=== PATIENT | female | born 1995 | race Caucasian/White ===

== ENCOUNTER 2016-07-22 10:21 | Inpatient (IN) | payer MEDICAID ==
[~2016-07-22] VITALS: Ht 157.5 cm; Wt 62.5 kg
[2016-07-22 10:37] VITALS: Ht 157.5 cm; Wt 62.5 kg
[2016-07-22] MEDS ORDERED: PRENAT PO (10:39)
[2016-07-22 11:11] LABS: ADD SCAN DIFF NO
[2016-07-22 11:22] LABS: ABNORMAL IP MESSAGE 1; BASOPHIL # 0.1 10^3/ul (0.0-0.1); BASOPHILS % 0.5 % (0.0-2.0); EOSINOPHILS # 2.1 10^3/ul (0.0-0.5); EOSINOPHILS % 21.9 % (0.0-7.0); HEMATOCRIT 35.5 % (37.0-47.0); HEMOGLOBIN 11.9 g/dl (12.0-16.0); LYMPHOCYTES # 1.9 10^3/ul (0.8-2.9); LYMPHOCYTES % 20.1 % (15.0-51.0); MEAN CORPUSCULAR HEMOGLOBIN 32.3 pg (29.0-33.0); MEAN CORPUSCULAR HGB CONC 33.5 g/dl (32.0-37.0); MEAN CORPUSCULAR VOLUME 96.5 fl (82.0-101.0); MEAN PLATELET VOLUME 10.4 fl (7.4-10.4); MONOCYTE # 0.5 10^3/ul (0.3-0.9); MONOCYTES % 5.4 % (0.0-11.0); NEUTROPHIL # 4.8 10^3/ul (1.6-7.5); NEUTROPHILS % 51.7 % (39.0-77.0); PLATELET COUNT 289 10^3/UL (140-415); RED BLOOD COUNT 3.68 10^6/ul (4.20-5.40); RED CELL DISTRIBUTION WIDTH 13.1 % (11.5-14.5); WHITE BLOOD COUNT 9.3 10^3/ul (4.8-10.8)
[2016-07-22 11:24] LABS: ADD UMIC NO; URINE BILIRUBIN (Dip) NEGATIVE (NEGATIVE); URINE BLOOD (Dip) NEGATIVE (NEGATIVE); URINE COLOR LT. YELLOW (YELLOW); URINE GLUCOSE (Dip) NEGATIVE (NEGATIVE); URINE KETONES (Dip) NEGATIVE (NEGATIVE); URINE LEUKOCYTE ESTERASE (Dip) NEGATIVE (NEGATIVE); URINE NITRITE (Dip) NEGATIVE (NEGATIVE); URINE TOTAL PROTEIN (Dip) NEGATIVE (NEGATIVE); URINE UROBILINOGEN (Dip) 0.2 E.U./dL (0.1-1.0)
[2016-07-22] MEDS ORDERED: LACTATED RINGER'S 500 ML IV* ONE (12:00)
[2016-07-22] MEDS ORDERED: LACTATED RINGER'S 1,000 ML IV SCH (12:00)
[2016-07-22] MEDS ORDERED: TERBUTALINE 1 MG/ML INJ SC ONE (12:00)
--- NOTE | 2016-07-22 12:35 | RADRPT ---
PROCEDURE: Limited OB ultrasound CLINICAL INDICATION: labor. TECHNIQUE: Sonographic evaluation to assess the cervical length was performed. Transabdominal nina ging of the gravid uterus was performed. COMPARISON: No prior exam is available for comparison. FINDINGS: There is a single live intrauterine with cardiac activity, with a heart rate o f 144 bpm. position is cephalic. The placenta is anterior. There are retroplacental areas o f decreased echogenicity along the superior and inferior aspect of the placenta. The cervix is clos ed with a length of 4.8 cm. IMPRESSION: 1. The cervix is closed with a length of 4.8 cm. 2. Small retroplacental areas of decreased echogenicity along the superior and inferior aspect of t he placenta. The exact location is difficult determine on provided images. These measure approxima te 3.5 cm in diameter, likely reflecting small areas of retroplacental hemorrhage. RPTAT: HH .Vivien Iniguez MD, MD Date Time Electronically viewed and signed by .Vivien Iniguez MD, on 07/22/2016 12:35 .G/
--- NOTE | 2016-07-22 12:43 | RADRPT ---
PROCEDURE: OB ultrasound for biophysical profile CLINICAL INDICATION: labor TECHNIQUE: Multiple sonographic images of the pelvis were obtained. Transabdominal views of the g ravid uterus are available for review. The images were reviewed on a PACS workstation. COMPARISON: None FINDINGS: breathing movement = 2/2 tone = 2/2 motion = 2/2 LENY = 2/2 MVP = 8.4 cm IMPRESSION: 1. Single live intrauterine gestation. 2. Biophysical profile = 8/8. 3. MVP = 8.4 cm. RPTAT: HH .Vivien Iniguez MD, MD Date Time Electronically viewed and signed by .Vivien Iniguez MD, on 07/22/2016 12:43 .G/
--- NOTE | 2016-07-22 13:22 | TRIAGE ---
OB Triage Datetime Report Generated by CPN: 07/22/2016 13:22 Datetime: 07/22/2016 13:08 Stage of : OB Triage Datetime: 07/22/2016 12:49 Labor Evaluation Frequency: 2-3 Monitor Mode: External Duration (sec)2399: 30-50 Quality: Mild Resting Tone [place]: Relaxed Heart Rate FHR Baseline Rate: 140 Monitor Mode: External US Variability: Moderate 6-25 bpm Decelerations: None Category: Category I Pain Assessment Pain Scale: 2 Pain Presence: Intermittent Pain Type: Cramping Pain Location: Abdomen Pain Goal: 3 Pain Relief Measures: Comfort Measures Datetime: 07/22/2016 11:42 Stage of : OB Triage Datetime: 07/22/2016 11:41 Labor Evaluation Frequency: 2-3 Monitor Mode: External Duration (sec)2399: 30-50 Quality: Mild Resting Tone [place]: Relaxed Heart Rate FHR Baseline Rate: 135 Monitor Mode: External US Variability: Moderate 6-25 bpm Decelerations: None Category: Category I Pain Assessment Pain Scale: 2 Pain Presence: Intermittent Pain Type: Cramping Pain Location: Abdomen Pain Goal: 3 Pain Relief Measures: Comfort Measures Datetime: 07/22/2016 10:41 Stage of : OB Triage Datetime: 07/22/2016 10:33 Stage of : OB Triage Assessment Type: Triage EGA: 28.5 Maternal Assessment Level of Consciousness: Fully Conscious DTR's/Clonus: DTRs 2+; No Clonus Headache: Denies Blurred Vision: No Respiratory Effort: Unlabored; Regular Rhythm; Equal Expansion Breath Sounds, Left: Clear and Equal Breath Sounds, Right: Clear and Equal Nausea/Vomiting: Denies RUQ Epigastric Pain: Denies Lower Extremities Edema: None Degree: None Upper Extremities Edema: None Degree: None Facial Edema: None Temperature Route: Axillary Fall Risk Assessment History of Falling: (0) No Secondary Diagnosis: (0) No Ambulatory Aid: (0) Bedrest/Nurse Assist IV Therapy: (0) No Gait: (0) Normal/Bedrest/Immobile Mental Status: (0) Oriented to Own Ability Fall Score: 0 Fall Risk Score Definition: No Risk: No action required Labor Evaluation Frequency: 0 Monitor Mode: External Pattern: Normal: <= 5 Contractions in 10 Minutes Resting Tone [place]: Relaxed Heart Rate FHR Baseline Rate: 140 Monitor Mode: External US Variability: Moderate 6-25 bpm Decelerations: Variable (Annotations: AUDIBLE X APPROX 20 SEC TO 90) Category: Category I Pain Assessment Pain Scale: 2 Pain Presence: Constant Pain Type: Cramping Pain Location: Abdomen Pain Goal: 3 Pain Relief Measures: Comfort Measures Datetime: 07/22/2016 10:31 Time of Arrival: 07/22/2016 10:15 Arrived By: Ambulatory Arrived From: Home Chief Complaint: C/O CONSTANT ABDOMINAL PAIN FOR 5 DAYS, DENIES BLEEDING, UC'S, OR LEAKING OF FLUI D Movement: Present Contractions: Irregular Rupture of Membranes: Denies Vaginal Bleeding: None Vaginal Discharge: Denies Recent Sexual Intercouse: Denies Abdominal Trauma: Not Applicable Time Provider Notified: 07/22/2016 10:41 Provider Notified: JEFF Initial Plan: MONITOR, CL, FFN, BPP, CBC, U/A
[2016-07-22] MEDS ORDERED: MAGNESIUM SULFATE 4 GM/100 ML 100 ML IV ONE (13:30)
[2016-07-22] MEDS: BETAMET NA PHOS/AC(6 MG/ML) 5ML INJ IM SCH (14:18)
[2016-07-22] MEDS: LACTATED RINGER'S 1,000 ML IV SCH (14:38)
[2016-07-22] MEDS: MAGNESIUM SULFATE 20 GM/500 ML 500 ML IV SCH (15:03)
[2016-07-22] MEDS ORDERED: CALCIUM GLUCONATE 10% 1 GM in SOD CHLORIDE 0.9% 100 ML IVPB PRN (20:30)
[2016-07-23] MEDS: MAGNESIUM SULFATE 20 GM/500 ML 500 ML IV SCH ×2 (00:17→11:47)
[2016-07-23] MEDS: LACTATED RINGER'S 1,000 ML IV SCH ×3 (00:22→21:49)
[2016-07-23] MEDS: SENNA TAB PO SCH (09:02)
[2016-07-23] MEDS: MULTIVIT/MIN/FOLATE/IRON/PREN TAB PO SCH (09:02)
--- NOTE | 2016-07-23 10:43 | CONS ---
DATE OF ADMISSION: 07/22/2016 DATE OF CONSULTATION: 07/23/2016 HISTORY OF PRESENT ILLNESS: The patient is a 20-year-old G2, P1 at 28 weeks and 4 days, who was adm itted yesterday with contractions. Cervical length apparently is 4.8 cm. She was subsequently plac ed on magnesium sulfate, first dose of betamethasone was given. Today, patient states she feels bet ter. She denies any currently contractions, vaginal bleeding, leakage of fluid. PAST MEDICAL HISTORY: Not significant. OBSTETRIC HISTORY: Previous vaginal delivery, full term, no complications. REVIEW OF SYSTEMS: All systems reviewed. Except for what is mentioned above, they are all negative . VITAL SIGNS: Stable. PHYSICAL EXAMINATION: Deferred. heart tone is reassuring for gestational age and tocometer s hows irregularities. IMPRESSION: Intrauterine at 28 weeks and 4 days on magnesium sulfate for contract ions, status post betamethasone x1, and the cervical length is long. RECOMMENDATIONS: Continue with the current management. Magnesium sulfate can be discontinued tomor row morning and in the afternoon if there is no change in patient's status and she is stable, she ca n be discharged home with labor precautions. I spoke to the patient and I answered her ques tions to the best of my ability. Dictated By: BABAK ESPINAL/JOLEEN Conf#: [id number] DID#: [id number]
--- NOTE | 2016-07-23 12:17 | HP ---
Date/Time of Note Date/Time of Note DATE: 07/23/16 TIME: 12:16 OB - History Hx of Present Free Text/Dictation patient is a 20-year-old G2, P1 at 28 weeks and 4 days, who was admitted yesterday with contractions. Cervical length apparently is 4.8 cm : 2 Para: 1 Care: Good Care Ultrasounds: Normal mid trimester US Medical Complications: None Past Family/Social History * Past Medical, Surgical, Family and Obstetric Histories reviewed from chart. OB Admission Exam Physical Exam HEENT: WNL Extremities: Normal Cervical Dilatation: None Effacement: 0% Station: Ballotable Membranes: Intact Heart Rate: 140's Accelerations: Accelerations Present Decelerations: No Decelerations Varibility: Moderate Contractions on Admission: < 5 Minutes Apart Last 72 hours Lab Results CBC & BMP 07/22/16 11:00 Magnesium Level Test 07/22/16 17:50 07/23/16 00:30 07/23/16 05:20 Magnesium Level 3.7 H 4.8 H 5.2 *H OB Assessment/Plan Reason for admission: observation Plan: Expectant Management Other plan: 1.Prenatology 2,Mg 3.Steroids NICHOL AGUILAR M.D. Jul 23, 2016 12:17
--- NOTE | 2016-07-23 12:19 | QN ---
Documentation Comment patient is complaining of chestpain no other associated symptos,No SOB VS stable Lungs clear Reflexes WNL NST Reactive [place] No CTS -->EKG -->Cardiac enzymes --->Management as per Perinatalogist NICHOL AGUILAR M.D. Jul 23, 2016 12:19
[2016-07-23] MEDS ORDERED: ONDANSETRON 4 MG INJ IV STA (12:20)
--- NOTE | 2016-07-23 13:38 | RADRPT ---
Vent Rate: 90 bpm RR Interval: 0 msec WI Interval: 146 msec QRS Duration: 80 msec QT Interval: 376 msec QTC Interval: 459 msec P-R-T [place]: 7 - 58 - 37 degrees Normal sinus rhythm Normal ECG Electronically Signed By: Fernando Ramirez [id number]
[2016-07-23] MEDS: BETAMET NA PHOS/AC(6 MG/ML) 5ML INJ IM SCH (14:32)
[2016-07-23] MEDS: AL HYDROX/MG HYDROX/SIMETH 30 ML CUP PO PRN (15:09)
--- NOTE | 2016-07-23 17:16 | CONS ---
DATE OF ADMISSION: 07/22/2016 DATE OF CONSULTATION: 07/23/2016 CHIEF COMPLAINT: Chest pain. HISTORY OF PRESENT ILLNESS: The patient is a 20-year-old female who is G2, P1 at 28 weeks 4 days. The patient was admitted by OB for contractions. She was given magnesium. The magnesium was stopped earlier today. She began to report chest pains. She has no cardiac history. She has no significant medical history. She has no other complaints at this time. She did receive some Mylanta. She subs equently felt better. EKG was done and showed normal sinus rhythm, no signs of ischemia. The patien t has no prior history of similar chest pain in the past. She does describe the pain as a pressure-l rony sensation. PAST MEDICAL HISTORY: Negative. PAST SURGICAL HISTORY: Denies. HOME MEDICATIONS: vitamins. ALLERGIES: NO KNOWN DRUG ALLERGIES. FAMILY HISTORY: Noncontributory. SOCIAL HISTORY: Denies any alcohol, tobacco or drugs. REVIEW OF SYSTEMS: A 12-point review of systems negative except that discussed in HPI. PHYSICAL EXAMINATION: VITAL SIGNS: Stable. GENERAL: No acute distress, alert and oriented. HEENT: Normocephalic, atraumatic. LUNGS: Clear to auscultation. CARDIOVASCULAR: Mildly tachycardic. ABDOMEN: Nondistended, nontender, soft. EXTREMITIES: No clubbing, cyanosis, or edema. MUSCULOSKELETAL: Tenderness to palpation in the chest. LABORATORIES: CBC within normal limits except for hemoglobin 11.9. Chemistry and magnesium has bee n high, last night it was 5.2. UA is negative. DIAGNOSTICS: EKG showed normal sinus rhythm, no signs of any arrhythmias or ischemia. ASSESSMENT AND PLAN: Chest pain is musculoskeletal in origin. The chest pain was completely reproduc ible with palpation of the chest. EKG showed no signs of ischemia. The patient has no risk factors , she is 20 years old. No reason to suspect any cardiac etiology for chest pain. The patient was a dvised that the musculoskeletal pain will improve with time. If the pain gets very severe she can ta ke an NSAID. No indication for further medicine consult at this point. Cleared for discharge from a medicine standpoint. Will now sign off. Once again, chest pain is musculoskeletal in origin. Of not e, she did have some improvement of her chest pain after receiving Mylanta, but this is likely secon rocky to a possible concomitant GI issue, as once again her pain is clearly reproducible with palpati on. At this point only recommend NSAIDs p.r.n. Once again, we will sign off at this time and is leo leon for discharge from medicine standpoint. Dictated By: BEATRIZ QUIROGA MD BS/NTS Conf#: [id number] DID#: [id number]
[2016-07-24] MEDS: AL HYDROX/MG HYDROX/SIMETH 30 ML CUP PO PRN (02:11)
[2016-07-24] MEDS: LACTATED RINGER'S 1,000 ML IV SCH (03:10)
[2016-07-24] MEDS: SENNA TAB PO SCH (08:33)
[2016-07-24] MEDS: MULTIVIT/MIN/FOLATE/IRON/PREN TAB PO SCH (08:33)
--- NOTE | 2016-07-24 12:31 | RADRPT ---
PROCEDURE: OB ultrasound for biophysical profile CLINICAL INDICATION: Biophysical profile. . TECHNIQUE: Multiple sonographic images of the pelvis were obtained. Transabdominal and transvagin al view of the gravid uterus are available for review. The images were reviewed on a PACS workstati on. COMPARISON: 07/22/2016 FINDINGS: Single intrauterine gestation. Presentation: Breech Partially visualized placenta: Anterior. Cervix is closed with a length of 4.2 cm as visualized transvaginally. breathing movement = 2/2 tone = 2/2 motion = 2/2 LENY = 2/2 LENY = 20.6 cm heart rate: 140 beats per minute IMPRESSION: Single intrauterine gestation. Biophysical profile 12/28 RPTAT: AADD .Ted Valencia MD, Date Time Electronically viewed and signed by .Ted Valencia MD, on 07/24/2016 12:31 .B/
--- NOTE | 2016-07-24 17:32 | QN ---
Documentation Comment 28+wks GA No symproms No VB +FM No LOF NO CTxs VS stable No cervical change NST Reactive [place] No CTS -->discharge home with precautions -->patient;s questions extensively answered NICHOL AGUILAR M.D. Jul 24, 2016 17:32
--- NOTE | 2016-07-24 17:33 | DS ---
Date/Time of Note Date/Time of Note DATE: 07/24/16 TIME: 17:32 Discharge Summary Admission/Discharge Info Admit Date/Time Jul 22, 2016 at 13:21 Discharge Date/Time Jul 24, 2016 at 13:58 Final Diagnosis labr Patient Condition: Stable Hospital Course Uneventful Home Meds Reported Medications Multivit/Min/Fol Ac/Iron/Pren* ( S*) 1 Tab Tab, 1 TAB PO DAILY, TAB 07/22/16 Pending Labs Laboratory Tests Test 07/24/16 17:05 Lab Scanned Report REFERENCE [id number] NICHOL AGUILAR M.D. Jul 24, 2016 17:33
== END 2016-07-24 13:58 | disposition home or self-care (01) | DRG 778 ==
LOC: OBT 10:21 → L-D 10:22 → OBT 13:19 → OBG 13:21
PROVIDERS: ADMIT Obstetrics & Gynecology; ATTEND Obstetrics & Gynecology
DX: O60.03 Preterm labor without delivery, third trimester (principal); R07.89 Other chest pain; Z3A.28 28 weeks gestation of pregnancy
CPT/HCPCS: 36415; 76817; 76818; 81003; 82731; 83735; 85025; 87086; 93005; 96360; 96372; G0463; J0702; J2405; J3105; J3475; J7120

== ENCOUNTER 2016-09-20 15:08 | Outpatient (CLI) | payer MEDICAID ==
[~2016-09-20] VITALS: Ht 154.9 cm; Wt 65.8 kg
[~2016-09-20 15:08] MED LIST: PRENAT PO
[2016-09-20 15:21] VITALS: BP 99/58; PULSE 67; Ht 154.9 cm; Wt 65.8 kg
--- NOTE | 2016-09-20 15:52 | RADRPT ---
PROCEDURE: US OB biophysical profile. CLINICAL INDICATION: decreased movements, IUGR TECHNIQUE: Multiple sonographic images of the pelvis were obtained. The images were reviewed on a PACS workstation. COMPARISON: 09/20/16 FINDINGS: There is a single viable intrauterine gestation. Cardiac activity is present with 134 beats per min [place]. There is a vertex presentation. The placenta is anterior. There is no evidence of placental abruption. There is a normal amount of amniotic fluid with an LENY = 9.5 cm. Biophysical profile: movement 2/2 tone 2/2. breathing 2/2 LENY 2/2 Total 12/28 RPTAT: AA . IMPRESSION: Normal biophysical profile. . .Marcello Sauer MD, MD Date Time Electronically viewed and signed by .Marcello Sauer MD, MD on 09/20/2016 15:51 .S/
--- NOTE | 2016-09-20 17:07 | RADRPT ---
PROCEDURE: US OB. CLINICAL INDICATION: Size and dates , IUGR TECHNIQUE: Multiple sonographic images of the pelvis and gravid uterus were obtained. The images were reviewed on a PACS workstation. COMPARISON: Same day FINDINGS: There is a single viable intrauterine gestation. Cardiac activity is present with 136 beats per min [place]. There is a vertex presentation. The placenta is anterior. There is no evidence for an abruption or placenta previa. Measurements were made in order to determine age. The results are as follows: BPD =8.9 cm HC =31.5 cm AC =34.8 cm FL =7.1 cm Estimated gestational age of approximately 36 weeks and 4 days based on ultrasound measurements. Clinical age: 37 weeks and 1 day. The estimated date of delivery is 10/14/2016, based on ultrasound measurements. The EFW = 3209 g, 65%, based on LMP age. RPTAT: AA IMPRESSION: Single viable intrauterine gestation of approximately 36 weeks and 4 days based on ultrasound measu rements. .Marcello Sauer MD, MD Date Time Electronically viewed and signed by .Marcello Sauer MD, on 09/20/2016 17:06 .S/
--- NOTE | 2016-09-20 18:34 | QN ---
Documentation Comment iup 37 weeks s<d pt doing well good fm us wnl rojelio 65 percentile a/p s<d us wnl continue care NATE TERRY MD September 20, 2016 18:34
== END 2016-09-20 17:50 | disposition home or self-care (01) ==
LOC: OBT 15:08 → L-D 15:13 → OBT 17:50
PROVIDERS: ATTEND Obstetrics & Gynecology
DX: O26.843 Uterine size-date discrepancy, third trimester (principal); O36.5930 Maternal care for other known or suspected poor fetal growth, third trimester, not applicable or unspecified; Z3A.37 37 weeks gestation of pregnancy
CPT/HCPCS: 76815; 76818; Z7500; G0463

== ENCOUNTER 2016-09-27 15:07 | Outpatient (CLI) | payer MEDICAID ==
[~2016-09-27] VITALS: Ht 167.6 cm; Wt 66.0 kg
[2016-09-27 15:17] VITALS: Ht 167.6 cm; Wt 66.0 kg
--- NOTE | 2016-09-27 15:54 | RADRPT ---
PROCEDURE: US OB biophysical profile. CLINICAL INDICATION: decreased movements, IUGR TECHNIQUE: Multiple sonographic images of the pelvis were obtained. The images were reviewed on a PACS workstation. COMPARISON: 09/20/2016 FINDINGS: There is a single viable intrauterine gestation. Cardiac activity is present with 130 beats per min [place]. There is a vertex presentation. The placenta is anterior. There is no evidence of placental abruption. There is a normal amount of amniotic fluid with an LENY = 17 cm. Biophysical profile: movement 2/2 tone 2/2. breathing 2/2 LENY 2/2 Total 12/28 RPTAT: AA . IMPRESSION: Normal biophysical profile. . .Marcello Sauer MD, MD Date Time Electronically viewed and signed by .Marcello Sauer MD, MD on 09/27/2016 15:54 .S/
--- NOTE | 2016-09-27 15:55 | RADRPT ---
PROCEDURE: US OB. CLINICAL INDICATION: Size and dates , IUGR TECHNIQUE: Multiple sonographic images of the pelvis and gravid uterus were obtained. The images were reviewed on a PACS workstation. COMPARISON: 09/20/2016 FINDINGS: There is a single viable intrauterine gestation. Cardiac activity is present with 122 beats per min [place]. There is a vertex presentation. The placenta is anterior. There is no evidence of placental abruption. There is a normal amount of amniotic fluid with an LENY = 17 cm. Measurements were made in order to determine age. The results are as follows: BPD =9.0 cm HC =32.6 cm AC =35 cm FL =7.2 cm Estimated gestational age of approximately 37 weeks and 2 days based on ultrasound measurements. Clinical age: 38 weeks and 1 day. The estimated date of delivery is 10/16/2016, based on ultrasound measurements. The EFW = 3341 g, 57%, based on LMP age. RPTAT: AA IMPRESSION: Single viable intrauterine gestation of approximately 37 weeks and 2 days based on ultrasound measu rements. Smaller than clinical age by 1 week. .Marcello Sauer MD, Date Time Electronically viewed and signed by .Marcello Sauer MD, on 09/27/2016 15:55 .S/
--- NOTE | 2016-09-27 18:16 | TRIAGE ---
OB Triage Datetime Report Generated by CPN: 09/27/2016 18:15 Datetime: 09/27/2016 16:25 Stage of : OB Triage Maternal Assessment Level of Consciousness: Fully Conscious DTR's/Clonus: DTRs 1+ Blurred Vision: No Respiratory Effort: Unlabored Breath Sounds, Left: Clear and Equal Breath Sounds, Right: Clear and Equal Nausea/Vomiting: Denies RUQ Epigastric Pain: Denies Facial Edema: None Quality: Mild Resting Tone Bug Tussle: Relaxed Heart Rate FHR Baseline Rate: 130 Variability: Moderate 6-25 bpm Accelerations: 15X15 Decelerations: None Category: Category I Pain Assessment Pain Scale: 0 Pain Presence: None/Denies Pain Type: N/A Pain Goal: 3 Membrane Status: Intact Datetime: 09/27/2016 15:33 Maternal Assessment Level of Consciousness: Fully Conscious DTR's/Clonus: DTRs 1+ Headache: Denies Blurred Vision: No Respiratory Effort: Unlabored Breath Sounds, Left: Clear and Equal Breath Sounds, Right: Clear and Equal RUQ Epigastric Pain: Denies Facial Edema: None Monitor Mode: External Resting Tone Bug Tussle: Relaxed Heart Rate FHR Baseline Rate: 120 Variability: Moderate 6-25 bpm Accelerations: 15X15 Decelerations: None Category: Category I Pain Assessment Pain Scale: 0 Pain Presence: None/Denies Pain Type: N/A Pain Goal: 0 Membrane Status: Intact Datetime: 09/27/2016 15:20 Assessment Type: Triage Maternal Assessment Level of Consciousness: Fully Conscious DTR's/Clonus: DTRs 2+; No Clonus Headache: Denies Blurred Vision: No Respiratory Effort: Unlabored; Regular Rhythm; Equal Expansion Breath Sounds, Left: Clear and Equal Breath Sounds, Right: Clear and Equal Nausea/Vomiting: Denies RUQ Epigastric Pain: Denies Lower Extremities Edema: None Degree: None Upper Extremities Edema: None Degree: None Facial Edema: None Fall Risk Assessment History of Falling: (0) No Secondary Diagnosis: (0) No Ambulatory Aid: (0) Bedrest/Nurse Assist IV Therapy: (0) No Gait: (0) Normal/Bedrest/Immobile Mental Status: (0) Oriented to Own Ability Fall Score: 0 Fall Risk Score Definition: No Risk: No action required Datetime: 09/27/2016 15:00 Time of Arrival: 09/27/2016 15:00 EGA: 38.1 Arrived By: Ambulatory Arrived From: Office Chief Complaint: PT CAME IN FROM [facility] OFFICE TO R/O IUGR Movement: Present Contractions: Denies/Absent Rupture of Membranes: Denies Vaginal Discharge: Denies Recent Sexual Intercouse: Denies Abdominal Trauma: Not Applicable Additional Patient Complaints: NONE Time Provider Notified: 09/27/2016 16:28 Provider Notified: JEFF Initial Plan: EFW , NST AND BPP Datetime: 09/20/2016 17:33 Stage of : OB Triage Datetime: 09/20/2016 17:29 Labor Evaluation Frequency: OCCAS Monitor Mode: External Duration (sec)2399: 30-50 Quality: Mild Pattern: Normal: <= 5 Contractions in 10 Minutes Resting Tone Bug Tussle: Relaxed Heart Rate FHR Baseline Rate: 135 Monitor Mode: External US Variability: Moderate 6-25 bpm Accelerations: 10X10 Decelerations: None Category: Category I Pain Assessment Pain Scale: 0 Pain Presence: None/Denies Pain Type: N/A Pain Goal: 3 Pain Relief Measures: Comfort Measures Datetime: 09/20/2016 17:13 Stage of : OB Triage Datetime: 09/20/2016 17:11 Vaginal Exam Dilatation (cms): 0.0 Exam By: S MARLA Vaginal Bleeding: None Cervix, Consistency: Soft Cervix, Position: Posterior Presentation 'A': Cephalic Datetime: 09/20/2016 16:17 Labor Evaluation Frequency: 10-15 Monitor Mode: External Duration (sec)2399: 40-60 Quality: Mild Pattern: Normal: <= 5 Contractions in 10 Minutes Resting Tone Bug Tussle: Relaxed Heart Rate FHR Baseline Rate: 135 Monitor Mode: External US Variability: Moderate 6-25 bpm Accelerations: 10X10 Decelerations: None Category: Category I Pain Assessment Pain Scale: 0 Pain Presence: None/Denies Pain Type: N/A Pain Goal: 3 Pain Relief Measures: Comfort Measures Datetime: 09/20/2016 15:18 Stage of : OB Triage Assessment Type: Triage Maternal Assessment Level of Consciousness: Fully Conscious DTR's/Clonus: DTRs 2+; No Clonus Headache: Denies Blurred Vision: No Respiratory Effort: Unlabored; Regular Rhythm; Equal Expansion Breath Sounds, Left: Clear and Equal Breath Sounds, Right: Clear and Equal Nausea/Vomiting: Denies RUQ Epigastric Pain: Denies Facial Edema: None Temperature Route: Axillary Fall Risk Assessment History of Falling: (0) No Secondary Diagnosis: (0) No Ambulatory Aid: (0) Bedrest/Nurse Assist IV Therapy: (0) No Gait: (0) Normal/Bedrest/Immobile Mental Status: (0) Oriented to Own Ability Fall Score: 0 Fall Risk Score Definition: No Risk: No action required Labor Evaluation Frequency: 0 Monitor Mode: External Resting Tone Bug Tussle: Relaxed Heart Rate FHR Baseline Rate: 135 Monitor Mode: External US Variability: Moderate 6-25 bpm Decelerations: None Pain Assessment Pain Scale: 0 Pain Presence: None/Denies Pain Type: N/A Pain Goal: 3 Pain Relief Measures: Comfort Measures Datetime: 09/20/2016 15:16 Time of Arrival: 09/20/2016 15:05 EGA: 37.1 Arrived By: Ambulatory Arrived From: Office Chief Complaint: SENT IN TO R/O IUGR, EFW/BPP Movement: Present Contractions: Denies/Absent Rupture of Membranes: Denies Vaginal Bleeding: None Vaginal Discharge: Denies Recent Sexual Intercouse: Denies Abdominal Trauma: Not Applicable Patient Complaints: None Time Provider Notified: 09/20/2016 17:13 Provider Notified: JEFF Initial Plan: MONITOR, BPP/EFW Datetime: 07/24/2016 12:00 Stage of : Antepartum Maternal Assessment Level of Consciousness: Fully Conscious Headache: Denies Nausea/Vomiting: Denies RUQ Epigastric Pain: Denies Labor Evaluation Frequency: 0/hr Monitor Mode: External Heart Rate FHR Baseline Rate: 140 Monitor Mode: External US Variability: Moderate 6-25 bpm Accelerations: 15X15 Decelerations: None Pain Assessment Pain Scale: 0 Pain Presence: None/Denies Vaginal Bleeding: None Datetime: 07/24/2016 11:00 Stage of : Antepartum Maternal Assessment Level of Consciousness: Fully Conscious Headache: Denies Nausea/Vomiting: Denies RUQ Epigastric Pain: Denies Labor Evaluation Frequency: 0/hr Monitor Mode: External Heart Rate FHR Baseline Rate: 140 Monitor Mode: External US Variability: Moderate 6-25 bpm Accelerations: 15X15 Decelerations: None Pain Assessment Pain Scale: 0 Pain Presence: None/Denies Vaginal Bleeding: None Datetime: 07/24/2016 10:00 Stage of : Antepartum Maternal Assessment Level of Consciousness: Fully Conscious Headache: Denies Nausea/Vomiting: Denies RUQ Epigastric Pain: Denies Labor Evaluation Frequency: 0/hr Monitor Mode: External Heart Rate FHR Baseline Rate: 135 Monitor Mode: External US Variability: Moderate 6-25 bpm Accelerations: 15X15 Decelerations: None Pain Assessment Pain Scale: 0 Pain Presence: None/Denies Vaginal Bleeding: None Datetime: 07/24/2016 09:17 Pain Presence: None/Denies Datetime: 07/24/2016 09:00 Stage of : Antepartum Maternal Assessment Level of Consciousness: Fully Conscious Headache: Denies Nausea/Vomiting: Denies RUQ Epigastric Pain: Denies Labor Evaluation Frequency: 0/hr Monitor Mode: External Heart Rate FHR Baseline Rate: 135 Monitor Mode: External US Variability: Moderate 6-25 bpm Accelerations: 15X15 Decelerations: None Pain Assessment Pain Scale: 0 Pain Presence: None/Denies Vaginal Bleeding: None Datetime: 07/24/2016 08:31 Monitor Mode: Palpation Resting Tone Bug Tussle: Relaxed Monitor Mode: External US Datetime: 07/24/2016 08:20 Stage of : Antepartum Maternal Assessment Level of Consciousness: Fully Conscious Headache: Denies Nausea/Vomiting: Denies RUQ Epigastric Pain: Denies Labor Evaluation Frequency: irreg Monitor Mode: External Duration (sec)2399: 30-50 Quality: Mild Resting Tone Bug Tussle: Relaxed Contraction Comments: pt. denies Heart Rate FHR Baseline Rate: 135 Monitor Mode: External US Variability: Moderate 6-25 bpm Accelerations: 15X15 Decelerations: None Pain Assessment Pain Scale: 0 Pain Presence: None/Denies Membrane Status: Intact Vaginal Bleeding: None Datetime: 07/24/2016 07:06 Assessment Type: Ongoing Assessment Maternal Assessment Level of Consciousness: Fully Conscious DTR's/Clonus: DTRs 2+ Headache: Denies Blurred Vision: No Respiratory Effort: Unlabored; Regular Rhythm; Equal Expansion Respiratory Effort: Unlabored Breath Sounds, Left: Clear and Equal Breath Sounds, Right: Clear and Equal Lower Extremities Edema: None Degree: None Upper Extremities Edema: None Degree: None Facial Edema: None Fall Risk Assessment History of Falling: (0) No Secondary Diagnosis: (0) No Ambulatory Aid: (0) Bedrest/Nurse Assist Gait: (0) Normal/Bedrest/Immobile Mental Status: (0) Oriented to Own Ability Datetime: 07/24/2016 06:59 Labor Evaluation Frequency: IRRITABL Monitor Mode: External Duration (sec)2399: 20-40 Quality: Mild Resting Tone Bug Tussle: Relaxed Heart Rate FHR Baseline Rate: 130 Monitor Mode: External US FHR Baseline Changes: No Baseline Change Variability: Moderate 6-25 bpm Accelerations: 15X15 Decelerations: None Category: Category I Datetime: 07/24/2016 06:00 Labor Evaluation Frequency: IRREG+IRRITABL Monitor Mode: External Duration (sec)2399: 30-70 Quality: Mild Resting Tone Bug Tussle: Relaxed Heart Rate FHR Baseline Rate: 130 Monitor Mode: External US FHR Baseline Changes: No Baseline Change Variability: Moderate 6-25 bpm Accelerations: 15X15 Decelerations: None Category: Category I Datetime: 07/24/2016 05:00 Labor Evaluation Frequency: IRRITABL Monitor Mode: External Duration (sec)2399: 15-30 Quality: Mild Resting Tone Bug Tussle: Relaxed Heart Rate FHR Baseline Rate: 130 Monitor Mode: External US FHR Baseline Changes: No Baseline Change Variability: Moderate 6-25 bpm Accelerations: 15X15 Decelerations: None Category: Category I Datetime: 07/24/2016 04:00 Labor Evaluation Frequency: X2+IRRITABL Monitor Mode: External Duration (sec)2399: 20-70 Quality: Mild Resting Tone Bug Tussle: Relaxed Heart Rate FHR Baseline Rate: 130 Monitor Mode: External US FHR Baseline Changes: No Baseline Change Variability: Moderate 6-25 bpm Accelerations: 15X15 Decelerations: None Category: Category I Datetime: 07/24/2016 03:00 Labor Evaluation Frequency: 0 Monitor Mode: External Heart Rate FHR Baseline Rate: 130 Monitor Mode: External US FHR Baseline Changes: No Baseline Change Variability: Moderate 6-25 bpm Accelerations: 15X15 Decelerations: None Category: Category I Datetime: 07/24/2016 02:03 Temperature Route: Oral Datetime: 07/24/2016 02:00 Labor Evaluation Frequency: 0 Monitor Mode: External Heart Rate FHR Baseline Rate: 130 Monitor Mode: External US FHR Baseline Changes: No Baseline Change Variability: Moderate 6-25 bpm Accelerations: 15X15 Decelerations: None Category: Category I Datetime: 07/24/2016 01:00 Labor Evaluation Frequency: SL IRRITABL Monitor Mode: External Duration (sec)2399: 10-40 Quality: Mild Resting Tone Bug Tussle: Relaxed Heart Rate FHR Baseline Rate: 140 Monitor Mode: External US FHR Baseline Changes: No Baseline Change Variability: Moderate 6-25 bpm Accelerations: 15X15 Decelerations: None Category: Category I Datetime: 07/24/2016 00:00 Labor Evaluation Frequency: 0 Monitor Mode: External Heart Rate FHR Baseline Rate: 135 Monitor Mode: External US FHR Baseline Changes: No Baseline Change Variability: Moderate 6-25 bpm Accelerations: 15X15 Decelerations: None Category: Category I Datetime: 07/23/2016 23:00 Labor Evaluation Frequency: 0 Monitor Mode: External Heart Rate FHR Baseline Rate: 140 Monitor Mode: External US FHR Baseline Changes: No Baseline Change Variability: Moderate 6-25 bpm Accelerations: 15X15 Decelerations: None Category: Category I Datetime: 07/23/2016 22:00 Labor Evaluation Frequency: 0 Monitor Mode: External Heart Rate FHR Baseline Rate: 140 Monitor Mode: External US FHR Baseline Changes: No Baseline Change Variability: Moderate 6-25 bpm Accelerations: 15X15 Decelerations: None Category: Category I Datetime: 07/23/2016 21:00 Labor Evaluation Frequency: 0 Monitor Mode: External Heart Rate FHR Baseline Rate: 140 Monitor Mode: External US FHR Baseline Changes: No Baseline Change Variability: Moderate 6-25 bpm Accelerations: 15X15 Decelerations: None Category: Category I Datetime: 07/23/2016 20:00 Labor Evaluation Frequency: 0 Monitor Mode: External Heart Rate FHR Baseline Rate: 135 Monitor Mode: External US FHR Baseline Changes: No Baseline Change Variability: Moderate 6-25 bpm Accelerations: 15X15 Decelerations: None Category: Category I Datetime: 07/23/2016 19:52 Temperature Route: Oral Pain Assessment Pain Scale: 0 Pain Goal: 0 Datetime: 07/23/2016 19:00 Labor Evaluation Frequency: IRRIT Monitor Mode: External Pattern: Normal: <= 5 Contractions in 10 Minutes Resting Tone Bug Tussle: Relaxed Heart Rate FHR Baseline Rate: 130 Monitor Mode: External US FHR Baseline Changes: No Baseline Change Variability: Moderate 6-25 bpm Accelerations: 15X15 Decelerations: None Category: Category I Datetime: 07/23/2016 18:00 Labor Evaluation Frequency: IRRIT Monitor Mode: External Pattern: Normal: <= 5 Contractions in 10 Minutes Resting Tone Bug Tussle: Relaxed Heart Rate FHR Baseline Rate: 130 Monitor Mode: External US FHR Baseline Changes: No Baseline Change Variability: Moderate 6-25 bpm Accelerations: 15X15 Decelerations: None Category: Category I Pain Assessment Pain Scale: 0 Pain Goal: 0 Pain Assessment Comments: PT SEEMS VERY COMFORTABLE, BEEN DRINKING MORE WATER Datetime: 07/23/2016 17:30 Labor Evaluation Frequency: NONE Monitor Mode: External Pattern: Normal: <= 5 Contractions in 10 Minutes Resting Tone Bug Tussle: Relaxed Heart Rate FHR Baseline Rate: 130 Monitor Mode: External US FHR Baseline Changes: No Baseline Change Variability: Moderate 6-25 bpm Accelerations: 15X15 Decelerations: None Category: Category I Datetime: 07/23/2016 16:30 Temperature Route: Oral Labor Evaluation Frequency: NONE Monitor Mode: External Pattern: Normal: <= 5 Contractions in 10 Minutes Resting Tone Bug Tussle: Relaxed Heart Rate FHR Baseline Rate: 130 Monitor Mode: External US FHR Baseline Changes: No Baseline Change Variability: Moderate 6-25 bpm Accelerations: 15X15 Decelerations: None Category: Category I Pain Assessment Pain Scale: 0 Pain Goal: 0 Pain Assessment Comments: PT STATES FEELING A LOT BETTER WANTS TO TAKE HER SHOWER NOW Datetime: 07/23/2016 15:00 Labor Evaluation Frequency: NONE Monitor Mode: External Pattern: Normal: <= 5 Contractions in 10 Minutes Resting Tone Bug Tussle: Relaxed Heart Rate FHR Baseline Rate: 130 Monitor Mode: External US FHR Baseline Changes: No Baseline Change Variability: Moderate 6-25 bpm Accelerations: 15X15 Decelerations: None Category: Category I Datetime: 07/23/2016 14:00 Labor Evaluation Frequency: NONE Monitor Mode: External Pattern: Normal: <= 5 Contractions in 10 Minutes Resting Tone Bug Tussle: Relaxed Heart Rate FHR Baseline Rate: 130 Monitor Mode: External US FHR Baseline Changes: No Baseline Change Variability: Moderate 6-25 bpm Accelerations: 15X15 Decelerations: None Category: Category I Pain Assessment Pain Scale: 3 Pain Presence: Constant Pain Goal: 0 Pain Assessment Comments: PT COMPLAINING OF CHEST PAIN. CALLED DR. AGUILAR AGAIN AND ASKED HIM I F I COULD GIVE THE PT MYLANTA AND HE SAID YES, SO I ORDERED IT FOR HER. Datetime: 07/23/2016 13:00 Labor Evaluation Frequency: NONE Monitor Mode: External Pattern: Normal: <= 5 Contractions in 10 Minutes Resting Tone Bug Tussle: Relaxed Heart Rate FHR Baseline Rate: 130 Monitor Mode: External US FHR Baseline Changes: No Baseline Change Variability: Moderate 6-25 bpm Accelerations: 15X15 Decelerations: None Category: Category I Pain Assessment Pain Scale: 1 Pain Presence: HAS NO NAUSEA, AND HARDLY ANY PAIN Pain Goal: 0 Datetime: 07/23/2016 12:15 Pain Assessment Pain Scale: 3 Pain Presence: Constant Pain Type: Pressure Pain Location: Right Chest; Left Chest Pain Goal: 0 Pain Relief Measures: Comfort Measures (Annotations: STOPPED RUNNING MAGNESIUM) Datetime: 07/23/2016 12:00 Labor Evaluation Frequency: NONE Monitor Mode: External Pattern: Normal: <= 5 Contractions in 10 Minutes Resting Tone Bug Tussle: Relaxed Heart Rate FHR Baseline Rate: 130 Monitor Mode: External US FHR Baseline Changes: No Baseline Change Variability: Moderate 6-25 bpm Accelerations: 15X15 Decelerations: None Category: Category I Datetime: 07/23/2016 11:00 Labor Evaluation Frequency: NONE Monitor Mode: External Pattern: Normal: <= 5 Contractions in 10 Minutes Resting Tone Bug Tussle: Relaxed Heart Rate FHR Baseline Rate: 130 Monitor Mode: External US FHR Baseline Changes: No Baseline Change Variability: Moderate 6-25 bpm Accelerations: 15X15 Decelerations: None Category: Category I Datetime: 07/23/2016 10:00 Labor Evaluation Frequency: NONE Monitor Mode: External Pattern: Normal: <= 5 Contractions in 10 Minutes Resting Tone Bug Tussle: Relaxed Heart Rate FHR Baseline Rate: 130 Monitor Mode: External US FHR Baseline Changes: No Baseline Change Variability: Moderate 6-25 bpm Accelerations: 15X15 Decelerations: None Category: Category I Datetime: 07/23/2016 09:00 Labor Evaluation Frequency: NONE Monitor Mode: External Pattern: Normal: <= 5 Contractions in 10 Minutes Resting Tone Bug Tussle: Relaxed Heart Rate FHR Baseline Rate: 130 Monitor Mode: External US FHR Baseline Changes: No Baseline Change Variability: Moderate 6-25 bpm Accelerations: 15X15 Decelerations: None Category: Category I Datetime: 07/23/2016 08:00 Maternal Assessment Level of Consciousness: Fully Conscious DTR's/Clonus: DTRs 2+; No Clonus Headache: Denies Breath Sounds, Left: Clear and Equal Breath Sounds, Right: Clear and Equal Nausea/Vomiting: Denies RUQ Epigastric Pain: Denies Temperature Route: Oral Labor Evaluation Frequency: IRRIT Monitor Mode: External Pattern: Normal: <= 5 Contractions in 10 Minutes Resting Tone Bug Tussle: Relaxed Heart Rate FHR Baseline Rate: 130 Monitor Mode: External US FHR Baseline Changes: No Baseline Change Variability: Moderate 6-25 bpm Accelerations: 15X15 Decelerations: None Category: Category I Datetime: 07/23/2016 07:24 Assessment Type: Ongoing Assessment Blurred Vision: No Respiratory Effort: Unlabored; Regular Rhythm; Equal Expansion Lower Extremities Edema: None Degree: None Upper Extremities Edema: None Degree: None Facial Edema: None Fall Risk Assessment History of Falling: (0) No Secondary Diagnosis: (0) No Ambulatory Aid: (0) Bedrest/Nurse Assist IV Therapy: (0) No Gait: (0) Normal/Bedrest/Immobile Mental Status: (0) Oriented to Own Ability Fall Score: 0 Fall Risk Score Definition: No Risk: No action required Datetime: 07/23/2016 07:00 Labor Evaluation Frequency: N/A Monitor Mode: External Resting Tone Bug Tussle: Relaxed Interventions: Side to Side Contraction Comments: Uterine activity/irritability noted. Heart Rate FHR Baseline Rate: 125 Monitor Mode: External US FHR Baseline Changes: No Baseline Change Variability: Moderate 6-25 bpm Accelerations: 10X10 Decelerations: Variable Category: Category II Comments: See documentation @ 0634 for variable deceleration. Periods of loss of FHR contact and m aternal HR detection. Datetime: 07/23/2016 06:34 Interventions: Side to Side Decelerations: Variable Comments: Variable deceleration lasting for 80 seconds before loss of FHR contact with nhi at 85 . Pt repositioned to left lateral side and US adjusted. Datetime: 07/23/2016 06:03 Pain Assessment Pain Scale: 0 Pain Presence: None/Denies Pain Type: N/A Pain Goal: 2 Datetime: 07/23/2016 06:00 Labor Evaluation Frequency: N/A Monitor Mode: External Resting Tone Bug Tussle: Relaxed Contraction Comments: Uterine activity/irritability noted. Heart Rate FHR Baseline Rate: 125 Monitor Mode: External US FHR Baseline Changes: No Baseline Change Variability: Moderate 6-25 bpm Accelerations: 15X15 Category: Category I Comments: Periods of loss of FHR contact and detection of maternal HR. Datetime: 07/23/2016 05:29 DTR's/Clonus: DTRs 2+; No Clonus Temperature Route: Oral Datetime: 07/23/2016 05:11 Comments: Pulse oximeter applied to pt right hand. Datetime: 07/23/2016 05:05 Comments: Pt self-repositioning Datetime: 07/23/2016 05:00 Labor Evaluation Frequency: x2 Monitor Mode: External Duration (sec)2399: 50-100 Quality: Mild Resting Tone Bug Tussle: Relaxed Heart Rate FHR Baseline Rate: 125 Monitor Mode: External US FHR Baseline Changes: No Baseline Change Variability: Moderate 6-25 bpm Accelerations: 10X10 Decelerations: None Category: Category I Comments: Periods of loss of FHR contact d/t pt self respositioning and movement. Pain Assessment Pain Scale: 0 Pain Presence: None/Denies Pain Type: N/A Pain Goal: 2 Datetime: 07/23/2016 04:01 Pain Assessment Pain Scale: 0 Pain Presence: None/Denies Pain Type: N/A Pain Goal: 2 Datetime: 07/23/2016 04:00 Labor Evaluation Frequency: N/A Monitor Mode: External Resting Tone Bug Tussle: Relaxed Contraction Comments: Uterine activity/irritability noted. Heart Rate FHR Baseline Rate: 125 Monitor Mode: External US FHR Baseline Changes: No Baseline Change Variability: Moderate 6-25 bpm Accelerations: 15X15 Decelerations: None Category: Category I Comments: Periods of loss of FHR contact d/t pt self-repositioning. Datetime: 07/23/2016 03:03 DTR's/Clonus: DTRs 2+; No Clonus Respiratory Effort: Unlabored; Regular Rhythm; Equal Expansion Breath Sounds, Left: Clear and Equal Breath Sounds, Right: Clear and Equal Pain Assessment Pain Scale: 0 Pain Presence: None/Denies Pain Type: N/A Pain Goal: 2 Datetime: 07/23/2016 03:00 Labor Evaluation Frequency: N/A Monitor Mode: External Resting Tone Bug Tussle: Relaxed Contraction Comments: Uterine activity/irritability noted. Heart Rate FHR Baseline Rate: 125 Monitor Mode: External US FHR Baseline Changes: No Baseline Change Variability: Moderate 6-25 bpm Accelerations: 15X15 Decelerations: None Category: Category I Comments: Periods of loss of FHR contact. Datetime: 07/23/2016 02:54 Comments: Maternal HR detected. Datetime: 07/23/2016 02:17 Pain Assessment Pain Scale: 0 Pain Presence: None/Denies Pain Type: N/A Pain Goal: 2 Datetime: 07/23/2016 02:00 Labor Evaluation Frequency: N/A Monitor Mode: External Resting Tone Bug Tussle: Relaxed Contraction Comments: Uterine activity noted. Heart Rate FHR Baseline Rate: 125 Heart Rate FHR Baseline Rate: 130 Monitor Mode: External US FHR Baseline Changes: No Baseline Change Variability: Moderate 6-25 bpm Accelerations: 15X15 Decelerations: None Category: Category I Datetime: 07/23/2016 01:00 DTR's/Clonus: DTRs 2+; No Clonus Labor Evaluation Frequency: x1 Monitor Mode: External Duration (sec)2399: 70 Quality: Mild Resting Tone Bug Tussle: Relaxed Contraction Comments: Uterine activity noted. Heart Rate FHR Baseline Rate: 135 Monitor Mode: External US FHR Baseline Changes: No Baseline Change Variability: Moderate 6-25 bpm Accelerations: 10X10 Decelerations: None Category: Category I Comments: Periods of loss of FHR contact. Pain Assessment Pain Scale: 0 Pain Presence: None/Denies Pain Type: N/A Pain Goal: 2 Datetime: 07/23/2016 00:01 Pain Assessment Pain Scale: 0 Pain Presence: None/Denies Pain Goal: 2 Datetime: 07/23/2016 00:00 Labor Evaluation Frequency: N/A Monitor Mode: External Resting Tone Bug Tussle: Relaxed Contraction Comments: Uterine activity noted. Heart Rate FHR Baseline Rate: 135 Monitor Mode: External US FHR Baseline Changes: No Baseline Change Variability: Moderate 6-25 bpm Accelerations: 15X15 Decelerations: None Category: Category I Comments: Periods of loss of FHR contact. Comments: Pt self-repositioned. Datetime: 07/22/2016 23:15 Maternal Assessment Level of Consciousness: Fully Conscious DTR's/Clonus: DTRs 2+; No Clonus Headache: Denies Blurred Vision: No Respiratory Effort: Unlabored; Regular Rhythm; Equal Expansion Breath Sounds, Left: Clear and Equal Breath Sounds, Right: Clear and Equal Datetime: 07/22/2016 23:01 Temperature Route: Oral Pain Assessment Pain Scale: 2 Pain Presence: Intermittent Pain Type: Contraction Pain Location: Abdomen Pain Goal: 2 Pain Relief Measures: Comfort Measures Datetime: 07/22/2016 23:00 Labor Evaluation Frequency: x2 Monitor Mode: External Duration (sec)2399: 80 Quality: Mild Resting Tone Bug Tussle: Relaxed Heart Rate FHR Baseline Rate: 135 Monitor Mode: External US FHR Baseline Changes: No Baseline Change Variability: Moderate 6-25 bpm Accelerations: 15X15 Decelerations: None Category: Category I Datetime: 07/22/2016 22:01 Contraction Comments: Pt self-repositioning Datetime: 07/22/2016 22:00 Labor Evaluation Frequency: N/A Monitor Mode: External Resting Tone Bug Tussle: Relaxed Contraction Comments: Uterine activity noted. Heart Rate FHR Baseline Rate: 130 Monitor Mode: External US FHR Baseline Changes: No Baseline Change Variability: Moderate 6-25 bpm Accelerations: 15X15 Decelerations: None Category: Category I Comments: Loss of FHR contact d/t movement Datetime: 07/22/2016 21:44 Maternal Assessment Level of Consciousness: Fully Conscious DTR's/Clonus: DTRs 2+; No Clonus Headache: Denies Nausea/Vomiting: Denies RUQ Epigastric Pain: Denies Pain Assessment Pain Scale: 1 Pain Presence: Intermittent Pain Type: Contraction Pain Location: Abdomen Pain Goal: 2 Pain Relief Measures: Comfort Measures Datetime: 07/22/2016 21:00 Labor Evaluation Frequency: N/A Monitor Mode: External Resting Tone Bug Tussle: Relaxed Contraction Comments: Uterine activity/irritability noted. Heart Rate FHR Baseline Rate: 125 Monitor Mode: External US FHR Baseline Changes: No Baseline Change Variability: Moderate 6-25 bpm Accelerations: 15X15 Decelerations: None Category: Category I Comments: Periods of loss of FHR contact d/t movement. Datetime: 07/22/2016 20:20 Pain Assessment Pain Scale: 1 Pain Presence: Intermittent Pain Type: Contraction Pain Location: Abdomen Pain Goal: 2 Pain Relief Measures: Comfort Measures Pain Assessment Comments: Pt states that pain is less than earlier. Datetime: 07/22/2016 20:00 Labor Evaluation Frequency: Uterine activity noted. Monitor Mode: External Quality: Mild Resting Tone Bug Tussle: Relaxed Contraction Comments: Pt states she feels UCs but states that they feel less painful than before. Heart Rate FHR Baseline Rate: 135 Monitor Mode: External US FHR Baseline Changes: No Baseline Change Variability: Moderate 6-25 bpm Accelerations: 10X10 Decelerations: None Category: Category I Comments: Loss of FHR contact d/t movement. Datetime: 07/22/2016 19:40 Temperature Route: Oral Pain Assessment Pain Scale: 2 Pain Presence: Intermittent Pain Type: Contraction Pain Location: Abdomen Pain Goal: 2 Pain Relief Measures: Comfort Measures Pain Assessment Comments: Pt states that UC pain is less than earlier today. Pt instructed on s/sx to report to RN. Pt verbalized understanding. Datetime: 07/22/2016 19:32 Assessment Type: Ongoing Assessment Maternal Assessment Level of Consciousness: Fully Conscious DTR's/Clonus: DTRs 2+; No Clonus Headache: Denies Blurred Vision: No Respiratory Effort: Unlabored; Regular Rhythm; Equal Expansion Breath Sounds, Left: Clear and Equal Breath Sounds, Right: Clear and Equal Nausea/Vomiting: Denies RUQ Epigastric Pain: Denies Lower Extremities Edema: None Degree: None Upper Extremities Edema: None Degree: None Facial Edema: None Fall Risk Assessment History of Falling: (0) No Secondary Diagnosis: (0) No Ambulatory Aid: (0) Bedrest/Nurse Assist IV Therapy: (20) Yes Gait: (0) Normal/Bedrest/Immobile Mental Status: (0) Oriented to Own Ability Fall Score: 20 Fall Risk Score Definition: No Risk: No action required Datetime: 07/22/2016 19:29 Stage of : Antepartum Datetime: 07/22/2016 19:25 Stage of : Antepartum Datetime: 07/22/2016 19:00 Labor Evaluation Frequency: X8/HR +IRRIT Monitor Mode: External Duration (sec)2399: 40 SEC Quality: Mild Pattern: Normal: <= 5 Contractions in 10 Minutes Resting Tone Bug Tussle: Relaxed Contraction Comments: PT STATES SHE HARDLY FEELS THEM Heart Rate FHR Baseline Rate: 135 Monitor Mode: External US FHR Baseline Changes: No Baseline Change Variability: Moderate 6-25 bpm Accelerations: 15X15 Decelerations: None Category: Category I Datetime: 07/22/2016 18:00 Labor Evaluation Frequency: X8/HR+IRRIT Monitor Mode: External Duration (sec)2399: 50 SEC Quality: Mild Pattern: Normal: <= 5 Contractions in 10 Minutes Resting Tone Bug Tussle: Relaxed Heart Rate FHR Baseline Rate: 135 Monitor Mode: External US FHR Baseline Changes: No Baseline Change Variability: Moderate 6-25 bpm Decelerations: None Category: Category I Datetime: 07/22/2016 17:00 Labor Evaluation Frequency: X8/HR +IRRIT Monitor Mode: External Duration (sec)2399: 50 TO 60 SEC Quality: Mild Pattern: Normal: <= 5 Contractions in 10 Minutes Resting Tone Bug Tussle: Relaxed Heart Rate FHR Baseline Rate: 135 Monitor Mode: External US FHR Baseline Changes: No Baseline Change Variability: Moderate 6-25 bpm Accelerations: 15X15 Decelerations: None Category: Category I Datetime: 07/22/2016 16:00 Temperature Route: Oral Labor Evaluation Frequency: X3/HR +IRRIT Monitor Mode: External Quality: Mild Pattern: Normal: <= 5 Contractions in 10 Minutes Resting Tone Bug Tussle: Relaxed Heart Rate FHR Baseline Rate: 135 Monitor Mode: External US FHR Baseline Changes: No Baseline Change Variability: Moderate 6-25 bpm Accelerations: 10X10 Decelerations: None Category: Category I Datetime: 07/22/2016 13:45 Assessment Type: Admission Assessment Maternal Assessment Level of Consciousness: Fully Conscious Maternal Assessment Level of Consciousness: Fully Conscious DTR's/Clonus: DTRs 2+; No Clonus Headache: Denies Blurred Vision: No Respiratory Effort: Unlabored; Regular Rhythm; Equal Expansion Breath Sounds, Left: Clear and Equal Breath Sounds, Right: Clear and Equal Nausea/Vomiting: Denies RUQ Epigastric Pain: Denies Lower Extremities Edema: None Degree: None Upper Extremities Edema: None Degree: None Facial Edema: None Temperature Route: Oral Fall Risk Assessment History of Falling: (0) No Secondary Diagnosis: (0) No Ambulatory Aid: (0) Bedrest/Nurse Assist Gait: (0) Normal/Bedrest/Immobile Mental Status: (0) Oriented to Own Ability Labor Evaluation Frequency: X12/HR Monitor Mode: External Duration (sec)2399: 40 SEC Quality: Mild Pattern: Normal: <= 5 Contractions in 10 Minutes Resting Tone Bug Tussle: Relaxed Interventions: Side to Side Heart Rate FHR Baseline Rate: 135 Monitor Mode: External US FHR Baseline Changes: No Baseline Change Variability: Moderate 6-25 bpm Accelerations: 10X10 Decelerations: None Category: Category I Datetime: 07/22/2016 12:50 Labor Evaluation Frequency: IRREG Monitor Mode: External Duration (sec)2399: 20-40 Resting Tone Bug Tussle: Relaxed Heart Rate FHR Baseline Rate: 140 Monitor Mode: External US Variability: Moderate 6-25 bpm Decelerations: None Category: Category I Pain Assessment Pain Scale: 2 Pain Presence: Intermittent Pain Type: Cramping Pain Location: Abdomen Pain Goal: 3 Pain Relief Measures: Comfort Measures Datetime: 07/22/2016 10:33 Time of Arrival: 07/22/2016 13:39 EGA: 28.4 Arrived By: Wheelchair Arrived From: Home Fall Score: 0 Fall Risk Score Definition: No Risk: No action required
== END 2016-09-27 16:40 | disposition home or self-care (01) ==
LOC: OBT 15:07 → L-D 15:08 → OBT 16:40
PROVIDERS: ATTEND Obstetrics & Gynecology
DX: O36.5930 Maternal care for other known or suspected poor fetal growth, third trimester, not applicable or unspecified (principal); O36.8130 Decreased fetal movements, third trimester, not applicable or unspecified; Z3A.38 38 weeks gestation of pregnancy
CPT/HCPCS: 76815; 76818; G0463

== ENCOUNTER 2016-10-04 15:58 | Inpatient (IN) | payer MEDICAID ==
[~2016-10-04] VITALS: Ht 162.6 cm; Wt 66.0 kg
[2016-10-04 16:47] VITALS: Ht 162.6 cm; Wt 66.0 kg
[2016-10-04 16:48] VITALS: BP 102/61; PULSE 75; RESP 16
[2016-10-04] MEDS ORDERED: BUTORPHANOL 2 MG INJ IV PRN ×2 (17:00)
[2016-10-04] MEDS ORDERED: IBUPROFEN 600 MG TAB PO PRN (17:00)
[2016-10-04] MEDS ORDERED: MISOPROSTOL 200 MCG TAB PR PRN (17:00)
[2016-10-04] MEDS ORDERED: OXYTOCIN 30 UNITS/LR 500 ML IV SCH ×2 (17:00)
[2016-10-04] MEDS ORDERED: LIDOCAINE 1% (MPF) 30 ML INJ INJ PRN (17:00)
[2016-10-04] MEDS ORDERED: OXYTOCIN 30 UNITS/LR 500 ML IV PRN (17:00)
[2016-10-04] MEDS ORDERED: METHYLERGONOVINE 0.2 MG INJ IM PRN (17:00)
[2016-10-04] MEDS ORDERED: CARBOPROST 250 MCG INJ IM PRN (17:00)
[2016-10-04] MEDS ORDERED: AMPICILLIN 2 GM/NS (PMX) 100 ML ONE (17:27)
[2016-10-04] MEDS ORDERED: AMPICILLIN 2 GM/NS (PMX) 100 ML IVPB ONE (18:00)
--- NOTE | 2016-10-04 18:02 | RADRPT ---
PROCEDURE: US OB. CLINICAL INDICATION: Poor growth TECHNIQUE: Multiple sonographic images of the pelvis were obtained. The images were reviewed on a PACS workstation. COMPARISON: 09/20/2016 FINDINGS: There is a single viable intrauterine gestation. Cardiac activity is present with 156 beats per min jessica. There is a cephalic presentation. Measurements were made in order to determine age. The results are as follows: BPD =9.22 cm HC =33.03 cm AC =33.17 cm FL =7.26 cm. Estimated gestational age of approximately 37 weeks 2 days. The estimated date of delivery is 10/23/2016. The EFW = 3144 g 23.5% . The placenta is anterior grade II. There is no evidence for an abruption There is a normal amount of amniotic fluid IMPRESSION: Single viable intrauterine gestation of approximately 37 weeks 2 days. The estimated date of delive ry is 10/23/2016 . .Michael Hernandez MD, Date Time Electronically viewed and signed by .Michael Hernandez MD, MD on 10/04/2016 18:02 .W/
[2016-10-04 18:19] LABS: ADD SCAN DIFF NO
[2016-10-04 18:21] LABS: BASOPHILS % 0.4 % (0.0-2.0); EOSINOPHILS # 0.1 10^3/ul (0.0-0.5); EOSINOPHILS % 0.9 % (0.0-7.0); HEMATOCRIT 34.1 % (37.0-47.0); HEMOGLOBIN 11.6 g/dl (12.0-16.0); LYMPHOCYTES # 1.7 10^3/ul (0.8-2.9); LYMPHOCYTES % 24.2 % (15.0-51.0); MEAN CORPUSCULAR VOLUME 93.9 fl (82.0-101.0); MEAN PLATELET VOLUME 10.4 fl (7.4-10.4); MONOCYTE # 0.5 10^3/ul (0.3-0.9); MONOCYTES % 7.1 % (0.0-11.0); NEUTROPHIL # 4.7 10^3/ul (1.6-7.5); NEUTROPHILS % 67.1 % (39.0-77.0); PLATELET COUNT 319 10^3/UL (140-415); RED BLOOD COUNT 3.63 10^6/ul (4.20-5.40); RED CELL DISTRIBUTION WIDTH 12.5 % (11.5-14.5); WHITE BLOOD COUNT 6.9 10^3/ul (4.8-10.8)
[2016-10-04] MEDS: OXYTOCIN 30 UNITS/LR 500 ML IV SCH (18:44)
[2016-10-04] MEDS: LACTATED RINGER'S 1,000 ML IV SCH (18:47)
[2016-10-04 18:59] LABS: INR 1.02; PARTIAL THROMBOPLASTIN TIME 28.4 Sec (25.0-35.0); PROTIME 13.4 Sec (12.2-14.2)
[2016-10-04] MEDS: AMPICILLIN 1 GM/NS (PMX) 50 ML IV SCH (22:11)
[2016-10-04] MEDS ORDERED: LACTATED RINGER'S 1,000 ML IV PRN (23:00)
[2016-10-05] MEDS: AMPICILLIN 1 GM/NS (PMX) 50 ML IV SCH ×3 (02:34→10:37)
[2016-10-05] MEDS: LACTATED RINGER'S 1,000 ML IV SCH ×2 (04:44→11:51)
[2016-10-05] MEDS ORDERED: EPHEDrine SULFATE 50 MG/5 ML SYG IV PRN (11:30)
[2016-10-05] MEDS ORDERED: ONDANSETRON 4 MG INJ IV PRN (11:30)
[2016-10-05] MEDS ORDERED: FENTAnyl 2MCG/ML-ROPIV 0.2% 100 ML BAG EPI SCH (11:30)
[2016-10-05] MEDS ORDERED: NALOXONE (0.4 MG/ML) INJ IV PRN (11:30)
[2016-10-05] MEDS: OXYTOCIN 30 UNITS/LR 500 ML IV SCH (14:08)
--- NOTE | 2016-10-05 14:44 | LDN ---
Date/Time of Note Date/Time of Note DATE: 10/05/16 TIME: 14:43 Delivery Summary Placenta Delivered: Spontaneously Meconium: none Episiotomy: No Perineal laceration: 1 Sponge & Needle done & correct: Yes All needle counts correct: Yes Any foreign bodies felt in the: No Problems: Infant Delivery Information Sex Infant Sex: male Apgars 1 Minute: 9 5 Minute: 9 Suctioning Nose & mouth suctioned at awais: Yes Delee suction performed: Yes Umbilical Cord Umbilical cord with: 3 Vessels Cord presentations: no nuchal cord Cord Blood was obtained: Yes Mother & Baby Disposition Disposition Mom & Baby to Maternity; Good: Yes Baby to NICU: No NICHOL AGUILAR M.D. October 05, 2016 14:44
--- NOTE | 2016-10-05 14:47 | HP ---
Date/Time of Note Date/Time of Note DATE: 10/05/16 TIME: 14:45 OB - History Hx of Present Free Text/Dictation 39+wks suspected IUGR : 2 Para: 1 Care: Good Care Ultrasounds: Normal mid trimester US Obstetrical Complications: None Medical Complications: None Past Family/Social History * Past Medical, Surgical, Family and Obstetric Histories reviewed from chart. OB Admission Exam Vital Signs Vital Signs Vital Signs Date Time Temp Pulse Resp B/P Pulse Ox O2 Delivery O2 Flow Rate FiO2 10/04/16 16:48 98.2 75 16 102/61 Room Air Physical Exam Abdomen: WNL Extremities: Normal Cervical Dilatation: 1cm Effacement: 75% Station: -1 Membranes: Intact Heart Rate: 140's Accelerations: Accelerations Present Decelerations: No Decelerations Varibility: Moderate Contractions on Admission: 6-10 Minutes Apart Last 72 hours Lab Results CBC & BMP 10/04/16 17:55 OB Assessment/Plan Reason for admission: observation Induction Method: per Pitocin Protocol NICHOL AGUILAR M.D. October 05, 2016 14:47
[2016-10-05 16:00] VITALS: BP 107/61; RESP 19
[2016-10-05] MEDS ORDERED: CARBOPROST 250 MCG INJ IM PRN (17:00)
[2016-10-05] MEDS ORDERED: METHYLERGONOVINE 0.2 MG INJ IM PRN (17:00)
[2016-10-05] MEDS ORDERED: ZOLPIDEM 5 MG TAB PO PRN (17:00)
[2016-10-05] MEDS ORDERED: MISOPROSTOL 200 MCG TAB PR PRN (17:00)
[2016-10-05] MEDS ORDERED: OXYCODONE/ASPIRIN (4.88/325) TAB PO PRN (17:00)
[2016-10-05] MEDS ORDERED: OXYTOCIN 30 UNITS/LR 500 ML IV PRN (17:00)
[2016-10-05] MEDS: IBUPROFEN 600 MG TAB PO SCH (17:22)
[2016-10-05] MEDS: WITCH HAZEL/GLYCERIN PAD PR PRN (17:22)
[2016-10-05] MEDS: LANOLIN 7 GM TUBE TOP PRN (17:22)
[2016-10-05] MEDS: LACTATED RINGER'S 1,000 ML IV* SCH (17:23)
[2016-10-05 19:30] VITALS: BP 99/55; PULSE 70; RESP 20
[2016-10-06 00:01] VITALS: BP 106/60; PULSE 75; RESP 18
[2016-10-06] MEDS: LACTATED RINGER'S 1,000 ML IV* SCH (00:36)
[2016-10-06 04:00] VITALS: BP 92/64; PULSE 72; RESP 20
[2016-10-06] MEDS: IBUPROFEN 600 MG TAB PO SCH ×4 (05:44→17:42)
[2016-10-06 07:45] VITALS: BP 103/57; PULSE 68; RESP 18
[2016-10-06 08:34] LABS: ADD SCAN DIFF NO
[2016-10-06 08:39] LABS: BASOPHILS % 0.5 % (0.0-2.0); EOSINOPHILS # 0.1 10^3/ul (0.0-0.5); EOSINOPHILS % 1.1 % (0.0-7.0); HEMATOCRIT 36.6 % (37.0-47.0); HEMOGLOBIN 12.1 g/dl (12.0-16.0); LYMPHOCYTES # 1.8 10^3/ul (0.8-2.9); LYMPHOCYTES % 24.9 % (15.0-51.0); MEAN CORPUSCULAR HEMOGLOBIN 31.3 pg (29.0-33.0); MEAN CORPUSCULAR HGB CONC 33.1 g/dl (32.0-37.0); MEAN CORPUSCULAR VOLUME 94.6 fl (82.0-101.0); MEAN PLATELET VOLUME 10.6 fl (7.4-10.4); MONOCYTE # 0.7 10^3/ul (0.3-0.9); NEUTROPHIL # 4.7 10^3/ul (1.6-7.5); NEUTROPHILS % 64.2 % (39.0-77.0); PLATELET COUNT 276 10^3/UL (140-415); RED BLOOD COUNT 3.87 10^6/ul (4.20-5.40); RED CELL DISTRIBUTION WIDTH 13.1 % (11.5-14.5); WHITE BLOOD COUNT 7.3 10^3/ul (4.8-10.8)
[2016-10-06 16:03] VITALS: BP 117/80; PULSE 66; RESP 19
[2016-10-06 19:30] VITALS: BP 109/56; PULSE 59; RESP 20
[2016-10-07] MEDS: IBUPROFEN 600 MG TAB PO SCH ×4 (00:19→18:06)
[2016-10-07 04:00] VITALS: BP 94/52; PULSE 63; RESP 18
[2016-10-07 08:00] VITALS: BP 107/58; PULSE 56; RESP 18
[2016-10-07] MEDS ORDERED: DIPHTH/TET/ACEL PERTUSS (ADULT) 0.5 ML VIAL IM* ONE (09:00)
--- NOTE | 2016-10-07 09:31 | QN ---
Documentation Comment Late Entry Note 10/06/16 PPD#1 is stable afebrile tolerates diet No VB +BM +voids No sign of Depression VS stable Gen NAD Abd soft NT ND Genitalia No blood at perinium --->Discharge Home NICHOL AGUILAR M.D. October 07, 2016 09:31
--- NOTE | 2016-10-07 09:33 | DS ---
Date/Time of Note Date/Time of Note DATE: 10/07/16 TIME: 09:32 Discharge Summary Admission/Discharge Info Admit Date/Time October 04, 2016 at 15:58 Discharge Date/Time 10/07/2016 Final Diagnosis Full term Labor Patient Condition: Stable Procedures Vaginal delivery Hospital Course Uneventful Home Meds Reported Medications Multivit/Min/Fol Ac/Iron/Pren* ( S*) 1 Tab Tab, 1 TAB PO DAILY, TAB 07/22/16 Primary Care Provider Care Physician NICHOL Salazar M.D. October 07, 2016 09:32
[2016-10-07] MEDS: LANOLIN 7 GM TUBE TOP PRN (12:12)
[2016-10-07] MEDS: WITCH HAZEL/GLYCERIN PAD PR PRN (12:12)
[2016-10-07 16:00] VITALS: BP 115/69; PULSE 61; RESP 18
== END 2016-10-07 18:30 | disposition home or self-care (01) | DRG 775 ==
LOC: L-D 15:58 → PP1 10-05 16:03 → EDSTATUS 10-10 15:56
PROVIDERS: ADMIT Obstetrics & Gynecology; ATTEND Obstetrics & Gynecology
PROC: 10E0XZZ Delivery of Products of Conception, External Approach (ICD-10-PCS; principal; 2016-10-05)
PROC: 0HQ9XZZ Repair Perineum Skin, External Approach (ICD-10-PCS; 2016-10-05)
DX: O70.0 First degree perineal laceration during delivery (principal); Z37.0 Single live birth; Z3A.39 39 weeks gestation of pregnancy
CPT/HCPCS: 62319; 76815; 85025; 85610; 85730; 86592; 86900; 86901; 90715; J0290; J2590; J3010; J7120

== ENCOUNTER 2018-11-26 13:33 | Emergency (ER) | payer MEDICAID ==
[~2018-11-26] VITALS: Ht 154.9 cm; Wt 62.2 kg
[2018-11-26 13:36] VITALS: BP 145/74; PULSE 95; RESP 16; Ht 154.9 cm; Wt 62.2 kg
[2018-11-26] MEDS ORDERED: DEXAMETHASONE 10 MG/ML 1 ML INJ PO ONE (14:00)
[2018-11-26] MEDS ORDERED: PROM5SYR2 PO (14:00)
--- NOTE | 2018-11-26 14:02 | ERD ---
ER Documentation Chief Complaint Chief Complaint COUGH, FEVER AT HOME, BODYACHES, ONSET 4 DAYS HPI Is a 23-year-old female presents with 4 days of cough congestion and sore throat. She also states she had a fever at home but admits she did not take her temperature. She also feels tired. No nausea or vomiting. ROS All systems reviewed and are negative except as per history of present illness. Medications Home Meds Active Scripts Promethazine HCl/Codeine (Prometh-Codein 6.25-10 mg/5 ml) 5 Ml Syrup, 5 ML PO Q6, #120 Prov:CHRISTY MUNOZ PA-C 11/26/18 Allergies Allergies: Coded Allergies: No Known Allergy (Unverified , 09/27/16) FmHx Family History: No diabetes Physical Exam Vitals Vital Signs Date Temp Pulse Resp B/P (MAP) Pulse Ox O2 O2 Flow FiO2 Time Delivery Rate 11/26/18 98.4 95 16 145/74 98 13:36 (97) Physical Exam INITIAL VITAL SIGNS: Reviewed by me GENERAL: Awake, alert and oriented x 4, well appearing, nontoxic, speaking in full sentences. No acute distress HEAD: Atraumatic NECK: Supple. No masses. Full range of motion. No meningismus. No midline tenderness. EYES: EOMI. PERRL. EAR: No tenderness over the mastoids bilaterally. No exudates in the canals. TMs nonerythematous. NOSE: Normal nose. THROAT: No tonilar erythema or edema. No exudates. Uvula midline. No kissing tonsils. RESPIRATORY: Clear to auscultation bilaterally. Symmetric chest wall rise. No wheezing or rales. No accessory muscle use. CV: Regular rate and rhythm. No murmurs, rubs, or gallops. Results 24 hrs Current Medications Medications Dose Sig/May Start Time Status Last (Trade) Ordered Route PRN Stop Time Admin Dose Reason Admin 10 mg ONCE ONCE 11/26/18 Dexamethasone PO 14:00 11/26/18 (Decadron) 14:01 Procedures/MDM This is an otherwise healthy, well appearing patient presenting with uncomplicated URI symptoms, likely viral in etiology. Patient is non-toxic and well hydrated. I have low suspicion for pneumonia or significant bacterial disease. Patient will be treated with outpatient supportive care; no indications for antibiotics at this time. Discharge instructions have included return precautions and close follow up with PMD. Departure Diagnosis: Primary Impression: URI (upper respiratory infection) Condition: Stable Patient Instructions: Preventing Common Respiratory Infections Additional Instructions: Llame al doctor MAANA y jbo maya REYNA PARA DENTRO DE 1-2 SOSA.Dgale a la secretaria que nosotros le instruimos hacer esta reyna.Avise o llame si baird condicin se empeora antes de la reyna. Regresa aqui si peor o no mejor. CHRISTY MUNOZ PA-C Nov 26, 2018 14:01
== END 2018-11-26 14:28 | disposition home or self-care (01) ==
LOC: FTE 13:33
DX: J06.9 Acute upper respiratory infection, unspecified (principal)
CPT/HCPCS: J1100; Z7502; 99283